=== PATIENT | female | born 1985 | race American Indian/Alaskan Native ===

== ENCOUNTER 2017-05-16 09:22 | Outpatient (CLI) | payer OTHER ==
--- NOTE | 2017-05-16 14:27 | XRay Report ---
XRAY BILATERAL ANKLE THREE VIEWS EACH: 05/16/17 09:22:00 CLINICAL: Bilateral ankle pain. FINDINGS: Right: The ankle mortise is intact. No fracture or dislocation. Mild soft tissue swelling, lateral greater than medial. Left: The ankle mortise is intact. No fracture or dislocation. Mild medial and lateral soft tissue swelling. IMPRESSION: Bilateral soft tissue swelling but otherwise negative.
== END 2017-05-16 09:23 | disposition home or self-care (01) ==
LOC: SPVIMAG 09:22
PROVIDERS: ATTEND Orthopaedic Surgery
DX: M25.462 Effusion, left knee (principal); M25.461 Effusion, right knee